=== PATIENT | male | born 1940 | race Caucasian/White ===

== ENCOUNTER 2017-08-17 13:13 | Emergency (ER) | payer OTHER ==
[~2017-08-17] VITALS: Ht 177.8 cm; Wt 81.7 kg
[~2017-08-17 13:13] MED LIST: ASPI81CH PO; Coreg12.5 MG PO; EPIN.3I IM; FLUSAL2505 INH; Fenofibrate134 MG PO; GABA300 PO; GUAI600T33 PO; LATA.005SO BOTHEYES; LEVFLO500 PO; Norco 10-325 T1 EACH PO; Norco 7.5-3251 EACH PO; Prednisone20 MG PO; TAMS.4ER PO; TIOT18 INH; TRAZ150T57 PO; Venlafaxine HCl75 MG PO; Zestril40 MG PO; Zithromax250 MG PO
[2017-08-17] MEDS ORDERED: Roxicodone5 MG PO (13:50)
== END 2017-08-17 14:00 | disposition home or self-care (01) ==
LOC: ER 13:13
DX: M75.31 Calcific tendinitis of right shoulder (principal); I10 Essential (primary) hypertension; J44.9 Chronic obstructive pulmonary disease, unspecified; F17.200 Nicotine dependence, unspecified, uncomplicated; Z88.5 Allergy status to narcotic agent; Z79.899 Other long term (current) drug therapy; Z79.82 Long term (current) use of aspirin; Z79.52 Long term (current) use of systemic steroids
CPT/HCPCS: 99283

== ENCOUNTER → 2018-04-11 | Outpatient (CLI) | payer OTHER ==
[~2018-04-11] MED LIST changes: +Roxicodone5 MG PO
[2018-04-11 11:42] LABS: BASOPHILS ABSOLUTE AUTO 0.05 K/mm3 (0.00-0.23); BASOPHILS PERCENT AUTO 1 % (0-2); EOSINOPHILS ABSOLUTE AUTO 0.05 K/mm3 (0.00-0.68); EOSINOPHILS PERCENT AUTO 1 % (0-6); Hematocrit 44.2 % (37.0-53.0); Hemoglobin 14.8 g/dL (13.5-17.5); IMMATURE GRAN ABSOLUTE AUTO 0.05 K/mm3 (0.00-0.10); IMMATURE GRAN PERCENT AUTO 1 % (0-1); LYMPHOCYTES ABSOLUTE AUTO 1.75 K/mm3 (0.84-5.20); LYMPHOCYTES PERCENT AUTO 16 % (21-46); MONOCYTES ABSOLUTE AUTO 1.15 K/mm3 (0.16-1.47); MONOCYTES PERCENT AUTO 11 % (4-13); Mean Corpuscular HGB 30.3 pg (26.0-34.0); Mean Corpuscular HGB Conc 33.5 g/dL (31.5-36.5); Mean Corpuscular Volume 91 fL (80-100); Mean Platelet Volume 9.4 fL (9.1-12.4); NEUTROPHILS ABSOLUTE AUTO 7.75 K/mm3 (1.96-9.15); NEUTROPHILS PERCENT AUTO 72 % (41-73); Platelet Count 256 K/mm3 (150-400); RDW Coefficient Variation 13.8 % (11.7-14.2); Red Blood Cell Count 4.88 M/mm3 (4.30-5.90)
[2018-04-11 11:54] LABS: Alanine Aminotransfer (ALT/SGP 15 U/L (12-78); Albumin, Blood 2.6 g/dL (3.4-5.0); Albumin/Globulin Ratio 0.6 (0.8-1.8); Alk Phos 83 U/L (40-126); Anion Gap 11 mmol/L (6-16); Aspartate Aminotrans (AST/SGOT 16 U/L (12-37); Bilirubin, Total 0.7 mg/dL (0.1-1.0); Blood Urea Nitrogen 9 mg/dL (8-24); Bun/Creatinine Ratio 12.3 (12.0-20.0); CO2, Blood 27 mmol/L (21-32); Calcium, Blood 9.1 mg/dL (8.5-10.1); Chloride, Blood 99 mmol/L (98-108); Creatinine, Blood 0.73 mg/dL (0.60-1.20); Globulin, Blood 4.3 g/dL (2.2-4.0); Glomerular Filtration Rate >60 (60-); Glucose, Blood 122 mg/dL (70-99); Potassium, Blood 3.6 mmol/L (3.5-5.5); Sodium, Blood 137 mmol/L (136-145); Total Protein, Blood 6.9 g/dL (6.4-8.2)
== END | disposition home or self-care (01) ==
LOC: LAB EV 11:38 → LAB SHORT 11:38
PROVIDERS: General Practice
DX: R06.02 Shortness of breath (principal)
CPT/HCPCS: 80053; 85025

== ENCOUNTER 2018-11-30 09:42 | Emergency (ER) | payer OTHER ==
[~2018-11-30] VITALS: Ht 182.9 cm; Wt 81.7 kg
[2018-11-30] MEDS ORDERED: OXYC10TA19 PO (11:46)
== END 2018-11-30 12:01 | disposition home or self-care (01) ==
LOC: ER 09:42
DX: M54.31 Sciatica, right side (principal); I10 Essential (primary) hypertension; J18.9 Pneumonia, unspecified organism; J44.9 Chronic obstructive pulmonary disease, unspecified; F17.200 Nicotine dependence, unspecified, uncomplicated; Z88.5 Allergy status to narcotic agent; Z79.899 Other long term (current) drug therapy; Z79.82 Long term (current) use of aspirin; Z79.52 Long term (current) use of systemic steroids
CPT/HCPCS: 73502; 96372; 99283-25; J1170

== ENCOUNTER 2019-01-25 08:39 | Day surgery (SDC) | payer OTHER ==
[~2019-01-25] VITALS: Ht 182.9 cm; Wt 80.4 kg
[~2019-01-25 08:39] MED LIST changes: +OXYC10TA19 PO
--- NOTE | 2019-01-25 11:18 | NUR ---
01/25/19 1118 Mercedes Lim PT WITH 2 DIME SIZE REDDENED AREAS AT THE RIGHT BICEP,LACERATION ON THE 5TH KNUCKLE,
--- NOTE | 2019-01-25 13:46 | NUR ---
01/25/19 1346 Renetta Garcia WHILE IN STEP DOWN PT DENIED NAUSEA AND PAIN. PT TOLERATED PO FLUIDS WELL. PT ACCOMPANIED BY HIS . RN WENT OVER DISCHARGE INSTRUCTIONS WITH PT AND PT'S UNTIL ALL QUESTIONS WERE ANSWERED. RN PROVIDED TEACHING RELATED TO INCENTIVE SPIROMETRY. PT DEMONSTRATED SPIROMETRY X4. PT DRESSED WITH HELP FROM AND RN. RN DEMONSTRATED HOW TO REMOVE AND ADJUST THE SLING. PT SENT HOME WITH: DISCHARGE INSTRUCTIONS, ULTRA SLING, POLAR UNIT, INCENTIVE SPIROMETRY, RX, AND PERSONAL BELONGINGS. PT AND PT'S VOICED SATISFACTION WITH CARE.
== END 2019-01-25 13:43 | disposition home or self-care (01) ==
LOC: ORSCSDS 08:39
PROVIDERS: Orthopaedic Surgery
PROC: 0LQ14ZZ Repair Right Shoulder Tendon, Percutaneous Endoscopic Approach (ICD-10-PCS; principal; 2019-01-25 10:00)
PROC: 0RBJ4ZZ Excision of Right Shoulder Joint, Percutaneous Endoscopic Approach (ICD-10-PCS; principal; 2019-01-25 10:00)
DX: M75.111 Incomplete rotator cuff tear or rupture of right shoulder, not specified as traumatic (principal); M75.31 Calcific tendinitis of right shoulder; J44.9 Chronic obstructive pulmonary disease, unspecified; F17.210 Nicotine dependence, cigarettes, uncomplicated; E78.5 Hyperlipidemia, unspecified; M79.7 Fibromyalgia; Z79.82 Long term (current) use of aspirin; Z79.899 Other long term (current) drug therapy
CPT/HCPCS: J0171; J0690; J1100; J1885; J2405; J2704; J2710; J3010; J7120

== ENCOUNTER → 2019-02-05 | Outpatient (CLI) | payer OTHER ==
[2019-02-05 10:43] LABS: BASOPHILS ABSOLUTE AUTO 0.06 K/mm3 (0.00-0.23); BASOPHILS PERCENT AUTO 1 % (0-2); EOSINOPHILS ABSOLUTE AUTO 0.19 K/mm3 (0.00-0.68); EOSINOPHILS PERCENT AUTO 2 % (0-6); Hematocrit 51.2 % (37.0-53.0); Hemoglobin 17.4 g/dL (13.5-17.5); IMMATURE GRAN ABSOLUTE AUTO 0.04 K/mm3 (0.00-0.10); IMMATURE GRAN PERCENT AUTO 1 % (0-1); LYMPHOCYTES ABSOLUTE AUTO 2.39 K/mm3 (0.84-5.20); LYMPHOCYTES PERCENT AUTO 29 % (21-46); MONOCYTES ABSOLUTE AUTO 0.65 K/mm3 (0.16-1.47); MONOCYTES PERCENT AUTO 8 % (4-13); Mean Corpuscular Volume 91 fL (80-100); NEUTROPHILS ABSOLUTE AUTO 5.01 K/mm3 (1.96-9.15); NEUTROPHILS PERCENT AUTO 60 % (41-73); Platelet Count 233 K/mm3 (150-400); RDW Coefficient Variation 14.2 % (11.7-14.2); RDW Standard Deviation 47.9 fL (35.1-46.3); Red Blood Cell Count 5.62 M/mm3 (4.30-5.90); White Blood Cell Count 8.34 K/mm3 (4.00-11.30)
[2019-02-05 10:55] LABS: Alanine Aminotransfer (ALT/SGP 18 U/L (12-78); Albumin, Blood 3.4 g/dL (3.4-5.0); Albumin/Globulin Ratio 0.9 (0.8-1.8); Alk Phos 84 U/L (40-126); Anion Gap 7 mmol/L (6-16); Aspartate Aminotrans (AST/SGOT 16 U/L (12-37); Bilirubin, Total 0.4 mg/dL (0.1-1.0); Blood Urea Nitrogen 14 mg/dL (8-24); Bun/Creatinine Ratio 20.6 (12.0-20.0); CO2, Blood 30 mmol/L (21-32); Calcium, Blood 9.1 mg/dL (8.5-10.1); Chloride, Blood 104 mmol/L (98-108); Creatinine, Blood 0.68 mg/dL (0.60-1.20); Globulin, Blood 3.8 g/dL (2.2-4.0); Glomerular Filtration Rate >60 (60-); Glucose, Blood 102 mg/dL (70-99); Potassium, Blood 3.9 mmol/L (3.5-5.5); Sodium, Blood 141 mmol/L (136-145); Total Protein, Blood 7.2 g/dL (6.4-8.2)
[2019-02-05 11:14] LABS: Troponin I <0.017 ng/mL (0.000-0.040)
== END | disposition home or self-care (01) ==
LOC: LAB EV 10:38 → LAB SHORT 10:38
PROVIDERS: Physician Assistant
DX: R07.9 Chest pain, unspecified (principal)
CPT/HCPCS: 80053; 83880; 84484; 85025; 85379

== ENCOUNTER → 2020-02-22 | Outpatient (CLI) | payer OTHER | LOC: PLD 13:38 → LAB SHORT 13:38 | DX: D48.5 Neoplasm of uncertain behavior of skin (principal) | CPT/HCPCS: 88312 ==

== ENCOUNTER 2021-09-24 15:31 | Inpatient (IN) | payer OTHER ==
[~2021-09-24] VITALS: Ht 182.9 cm; Wt 76.4 kg
[2021-09-24 17:01] LABS: BASOPHILS ABSOLUTE AUTO 0.06 K/mm3 (0.00-0.23); BASOPHILS PERCENT AUTO 1 % (0-2); EOSINOPHILS ABSOLUTE AUTO 0.02 K/mm3 (0.00-0.68); EOSINOPHILS PERCENT AUTO 0 % (0-6); Hematocrit 45.4 % (37.0-53.0); IMMATURE GRAN ABSOLUTE AUTO 0.07 K/mm3 (0.00-0.10); IMMATURE GRAN PERCENT AUTO 1 % (0-1); LYMPHOCYTES PERCENT AUTO 16 % (21-46); MONOCYTES ABSOLUTE AUTO 1.12 K/mm3 (0.16-1.47); MONOCYTES PERCENT AUTO 10 % (4-13); Mean Corpuscular HGB 29.2 pg (26.0-34.0); Mean Corpuscular Volume 89 fL (80-100); Mean Platelet Volume 9.7 fL (9.1-12.4); NEUTROPHILS ABSOLUTE AUTO 8.33 K/mm3 (1.96-9.15); NEUTROPHILS PERCENT AUTO 73 % (41-73); Platelet Count 273 K/mm3 (150-400); RDW Coefficient Variation 14.3 % (11.7-14.2); RDW Standard Deviation 46.6 fL (35.1-46.3); Red Blood Cell Count 5.13 M/mm3 (4.30-5.90)
[2021-09-24 17:18] LABS: Influenza A, PCR NEGATIVE (NEGATIVE); Influenza B, PCR NEGATIVE (NEGATIVE); Resp Syncytial Virus, PCR NEGATIVE (NEGATIVE)
[2021-09-24 17:20] LABS: Albumin, Blood 2.4 g/dL (3.4-5.0); Albumin/Globulin Ratio 0.5 (0.8-1.8); Bilirubin, Total 1.1 mg/dL (0.1-1.0); Calcium, Blood 9.1 mg/dL (8.5-10.1); Creatinine, Blood 0.58 mg/dL (0.60-1.20); Globulin, Blood 4.5 g/dL (2.2-4.0); Total Protein, Blood 6.9 g/dL (6.4-8.2)
[2021-09-24 18:05] LABS: SARS-Cov-2 (COVID-19) PCR, MMC POSITIVE (NEGATIVE)
[2021-09-24] MEDS ORDERED: OXYC10ER PO (23:01)
--- NOTE | 2021-09-25 03:17 | NUR ---
PT CONTINUES TO BE SWEATY BUT TEMPERATURE NORMAL WITH ORAL TEMPURATURE. DOES NOT FEEL WARM TO THE TOUCH. WARM BLANKETS PROVIDED FOR PT COMFORT. DENIES FURTHER NEEDS AT THIS TIME. CALL LIGHT IN REACH.
[2021-09-25 04:38] LABS: BASOPHILS ABSOLUTE AUTO 0.03 K/mm3 (0.00-0.23); BASOPHILS PERCENT AUTO 0 % (0-2); EOSINOPHILS PERCENT AUTO 0 % (0-6); Hematocrit 43.7 % (37.0-53.0); Hemoglobin 14.6 g/dL (13.5-17.5); IMMATURE GRAN ABSOLUTE AUTO 0.04 K/mm3 (0.00-0.10); IMMATURE GRAN PERCENT AUTO 1 % (0-1); LYMPHOCYTES ABSOLUTE AUTO 0.66 K/mm3 (0.84-5.20); LYMPHOCYTES PERCENT AUTO 9 % (21-46); MONOCYTES ABSOLUTE AUTO 0.15 K/mm3 (0.16-1.47); MONOCYTES PERCENT AUTO 2 % (4-13); Mean Corpuscular HGB 28.9 pg (26.0-34.0); Mean Corpuscular HGB Conc 33.4 g/dL (31.5-36.5); Mean Corpuscular Volume 86 fL (80-100); Mean Platelet Volume 10.6 fL (9.1-12.4); NEUTROPHILS ABSOLUTE AUTO 6.46 K/mm3 (1.96-9.15); NEUTROPHILS PERCENT AUTO 88 % (41-73); Platelet Count 245 K/mm3 (150-400); RDW Coefficient Variation 14.4 % (11.7-14.2); RDW Standard Deviation 45.7 fL (35.1-46.3); Red Blood Cell Count 5.06 M/mm3 (4.30-5.90); White Blood Cell Count 7.34 K/mm3 (4.00-11.30)
[2021-09-25 04:48] LABS: Albumin, Blood 2.2 g/dL (3.4-5.0); Albumin/Globulin Ratio 0.5 (0.8-1.8); Bilirubin, Total 0.7 mg/dL (0.1-1.0); Bun/Creatinine Ratio 32.2 (12.0-20.0); Calcium, Blood 8.4 mg/dL (8.5-10.1); Creatinine, Blood 0.47 mg/dL (0.60-1.20); Globulin, Blood 4.3 g/dL (2.2-4.0); Potassium, Blood 5.4 mmol/L (3.5-5.5); Total Protein, Blood 6.5 g/dL (6.4-8.2)
--- NOTE | 2021-09-25 06:48 | NUR ---
I&O CATHETER PLACED PER DR. HUIZAR'S INSTRUCTIONS DUE TO PT BEING UNABLE TO VOID. SUPRAPUBIC AREA TENDER WHEN PALPATED BUT DOES NOT HAVE SENSATION TO VOID. DRAINING SIGNIFICANT AMOUNT OF CLEAR, FREDRICK URINE. PT COMPLAINS OF SIGNIFICANT PAIN WITH CATHETER INSERTION. PAIN SUBSIDES AFTER REMOVAL. RESPIRATORY THERAPY CALLED TO REQUEST BREATHING TREATMENT.
[2021-09-25] MEDS ORDERED: CYCL10 PO (15:51)
[2021-09-25] MEDS ORDERED: BUSP5 PO (15:52)
--- NOTE | 2021-09-25 18:06 | NUR ---
PT SUMMARY: PT HAS BEEN ANXIOUS MOST OF THE SHIFT AND WAS RESTLESS IN BED, WAS FRUSTRATED HE IS SICK AND IS IN THE HOSPITAL, ASKED IF THE PT WAS IN PAIN PT STATED HE TAKES OXYCONTIN AND NORCO AT HOME, NORCO 2 TABS WAS GIVEN FOR 8/10 PAIN ALL OVER AND WAS EFFECTIVE, IN THE LATE AFTERNOON PT HAD ANXIETY ATTACK AGAIN C/O SOB/ AND WAS TACHYPNEIC EVEN THOUGH SATS WERE 94-96%, WHEN RT WAS IN THE ROOM REPORTED THAT HE TAKES BUSPAR FOR ANXIETY CALLED PROVIDER AND VERIFIED WITH [facility] BUSPAR 5MG WAS THEN ORDERED, ONE DOSE WAS GIVEN, PT MORE CALM AND RELAXED AT THIS TIME. VITALS HRR SR WITH PAC'S AND PVCS AT 90'S GOES UP TO 130'S ST WITH EXERTION, BP SYSTOLIC 110'S, HAS BEEN ON 3L OF O2 VIA NASAL CANNULA SATS HAS BEEN ABOVE 92%, AFERBRILE. NOC SHIFT RN REPORTED BLADDER RETENTION PT REPORTED HE VOIDED TWICE FOR THE SHIFT AND A BM WELL, BLADDER SCAN ONLY SHOWS 80MLS OF URINE RETAINED. BED BATH COMPLETED, PT WITH POOR APPETITE, MOSTLY TOLERATING FLUIDS. ECHO DONE, AWAITING FOR RESULRT. NO OTHER ISSUES REPORTED, ABLE TO MAKE NEEDS KNOWN, WILL REPORT TO ONCOMING SHIFT
--- NOTE | 2021-09-26 00:03 | NUR ---
Assumed care of patient at 1900. A/Ox4 with periods of high anxiety. Patient states "I just feel terrible". Patient sleeping on side when this RN entered. No acute distress noted. Bed alarm on, bed in low position, call light within reach.
[2021-09-26 05:24] LABS: BASOPHILS ABSOLUTE AUTO 0.02 K/mm3 (0.00-0.23); BASOPHILS PERCENT AUTO 0 % (0-2); EOSINOPHILS PERCENT AUTO 0 % (0-6); Hematocrit 41.6 % (37.0-53.0); Hemoglobin 13.6 g/dL (13.5-17.5); Mean Corpuscular HGB 28.9 pg (26.0-34.0); Mean Corpuscular HGB Conc 32.7 g/dL (31.5-36.5); Mean Corpuscular Volume 89 fL (80-100); Mean Platelet Volume 10.1 fL (9.1-12.4); Platelet Count 304 K/mm3 (150-400); RDW Coefficient Variation 14.4 % (11.7-14.2); RDW Standard Deviation 46.8 fL (35.1-46.3); White Blood Cell Count 9.39 K/mm3 (4.00-11.30)
[2021-09-26 05:25] LABS: IMMATURE GRAN ABSOLUTE AUTO 0.07 K/mm3 (0.00-0.10); IMMATURE GRAN PERCENT AUTO 1 % (0-1); LYMPHOCYTES ABSOLUTE AUTO 0.84 K/mm3 (0.84-5.20); LYMPHOCYTES PERCENT AUTO 9 % (21-46); MONOCYTES ABSOLUTE AUTO 0.53 K/mm3 (0.16-1.47); MONOCYTES PERCENT AUTO 6 % (4-13); NEUTROPHILS ABSOLUTE AUTO 7.93 K/mm3 (1.96-9.15); NEUTROPHILS PERCENT AUTO 85 % (41-73)
[2021-09-26 05:47] LABS: Albumin, Blood 2.1 g/dL (3.4-5.0); Anion Gap 7 mmol/L (6-16); Blood Urea Nitrogen 20 mg/dL (8-24); Bun/Creatinine Ratio 44.8 (12.0-20.0); CO2, Blood 29 mmol/L (21-32); Calcium, Blood 8.6 mg/dL (8.5-10.1); Chloride, Blood 102 mmol/L (98-108); Creatinine, Blood 0.45 mg/dL (0.60-1.20); Glomerular Filtration Rate 105 (60-); Glucose, Blood 140 mg/dL (70-99); Phosphorus, Blood 2.5 mg/dL (2.5-4.9); Potassium, Blood 3.8 mmol/L (3.5-5.5); Sodium, Blood 138 mmol/L (136-145)
[2021-09-26 05:48] LABS: BAND PERCENT MAN 3 % (0-8); BASOPHILS PERCENT MAN 0 % (0-2); EOSINOPHILS PERCENT MAN 0 % (0-6); LYMPHOCYTES ABSOLUTE MAN 0.65 K/mm3 (0.84-5.20); LYMPHOCYTES PERCENT MAN 7 % (21-46); MONOCYTES ABSOLUTE MAN 0.18 K/mm3 (0.16-1.47); MONOCYTES PERCENT MAN 2 % (4-13); NEUTROPHILS ABSOLUTE MAN 8.54 K/mm3 (1.96-9.15); SEG NEUTROPHILS PERCENT MAN 88 % (41-73); TOTAL CELLS COUNTED 100
--- NOTE | 2021-09-26 05:50 | NUR ---
SHIFT SUMMARY Patient remained A/Ox4, with periods of high anxiety. Patient reports pain "all over", repositioning and medicated per emar. 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 Weakness noted t/o. Patient states multiple times through shift that he is concerned about his 's ability to care for him given how weak he is. Maintaining over 92% on 3L NC, LS rhonchi on top bl, and dim at bases. TREVINO. Productive cough producing moderate, thick, gonzalez sputum. ST on tele 90-110. Peaked T waves noted on telemetry. VSS. Able to make needs known. Will report to dayshift RN.
--- NOTE | 2021-09-26 17:19 | NUR ---
PT SUMMARY: PT ANXIETY AND PAIN MANAGED WITH NORCO AND BUSPAR, PT WAS MORE CALM AND RELAXED TODAY STILL HAS EPISODES OF ANXIETY UPON GETTING UP TO USE THE BEDSIDE COMMODE, SATS HAS BEEN ABOVE 90% ON 3L. BP SYSTOLIC ELEVATED AT 150'S, HRR SR/ST 90'S. PT TRANSITIONED TO MEDICAL WITH NO TELE. NO ISSUES REPORTED FAR BOWEL ELIMINATION, HAD A BM TODAY ADEQUATE URINE OUTPUT, STILL HAS POOR APPETITE. BREATHING TX/INHALER PER RT. AND DAUGHTER WAS GIVEN UPDATE ABOUT PT OVER THE PHONE WAS ALSO ABLE TO TALK TO OVER THE PHONE, THEN LATE AFTERNOON PT TOLD THIS RN TO NOT DISCLOSED ANY INFORMATION TO ANYBODY OTHER THAN THE , CHART UPDATED. NO OTHER ISSUES REPORTED FOR THE SHIFT, WILL REPORT TO ONCOMING SHIFT
[2021-09-27 04:53] LABS: BASOPHILS ABSOLUTE AUTO 0.03 K/mm3 (0.00-0.23); BASOPHILS PERCENT AUTO 0 % (0-2); EOSINOPHILS PERCENT AUTO 0 % (0-6); Hematocrit 44.8 % (37.0-53.0); Hemoglobin 14.9 g/dL (13.5-17.5); Mean Corpuscular HGB Conc 33.3 g/dL (31.5-36.5); Mean Corpuscular Volume 87 fL (80-100); Platelet Count 330 K/mm3 (150-400); RDW Coefficient Variation 14.5 % (11.7-14.2); RDW Standard Deviation 46.5 fL (35.1-46.3); Red Blood Cell Count 5.13 M/mm3 (4.30-5.90); White Blood Cell Count 9.95 K/mm3 (4.00-11.30)
[2021-09-27 05:09] LABS: IMMATURE GRAN ABSOLUTE AUTO 0.05 K/mm3 (0.00-0.10); IMMATURE GRAN PERCENT AUTO 1 % (0-1); LYMPHOCYTES ABSOLUTE AUTO 1.67 K/mm3 (0.84-5.20); LYMPHOCYTES PERCENT AUTO 17 % (21-46); MONOCYTES ABSOLUTE AUTO 0.76 K/mm3 (0.16-1.47); MONOCYTES PERCENT AUTO 8 % (4-13); NEUTROPHILS ABSOLUTE AUTO 7.44 K/mm3 (1.96-9.15); NEUTROPHILS PERCENT AUTO 75 % (41-73)
[2021-09-27 05:20] LABS: Albumin, Blood 2.2 g/dL (3.4-5.0); Anion Gap 4 mmol/L (6-16); Blood Urea Nitrogen 14 mg/dL (8-24); Bun/Creatinine Ratio 27.7 (12.0-20.0); CO2, Blood 32 mmol/L (21-32); Calcium, Blood 8.7 mg/dL (8.5-10.1); Chloride, Blood 101 mmol/L (98-108); Creatinine, Blood 0.51 mg/dL (0.60-1.20); Glomerular Filtration Rate 101 (60-); Glucose, Blood 102 mg/dL (70-99); Phosphorus, Blood 2.5 mg/dL (2.5-4.9); Potassium, Blood 3.8 mmol/L (3.5-5.5); Sodium, Blood 137 mmol/L (136-145)
--- NOTE | 2021-09-27 05:55 | NUR ---
SHIFT SUMMARY Patient remained A/Ox4, with periods of high anxiety. New medication, Atarax, given with good relief. Patient reports pain "all over", repositioning and medicated per emar. Maintaining over 92% on 2L NC, LS rhonchi t/o. TREVINO. Productive cough producing large amounts of, thick, gonzalez sputum. VSS. Able to make needs known. No acute changes this shift. Will report to dayshift RN.
--- NOTE | 2021-09-27 19:31 | NUR ---
SHIFT SUMMARY PATIENT ALERT WHEN AWAKE. FREQUENTLY ANXIOUS THROUGHOUT SHIFT. SHORTNESS OF BREATH WITH EXERTION. 2L OF O2 VIA NC TO KEEP SATS ABOVE 90%. INS AND EXP WHEEZE THROUGHOUT. IND UP TO COMMODE THEN BACK TO BED. MEDICATED FOR PAIN PER EMAR. TOLERATING CARDIAC DIET AND LIQUIDS. TOLERATING BREATHING TREATMENTS PER RT.
--- NOTE | 2021-09-28 05:56 | NUR ---
SHIFT SUMMARY Patient remained A/Ox4, with less episodes of anxiety. Independent to BSC. Patient reports pain in his back, relieved with meds given per emar. Maintaining over 92% on 2L NC, LS rhonchi t/o. TREVINO. Productive cough producing large amounts of, thick, gonzalez sputum. VSS. Able to make needs known. No acute changes this shift. Will report to daysgem LANDEROS.
--- NOTE | 2021-09-28 08:48 | NUR ---
AM NOTE: ALERT AND ORIENTED X4. ABLE TO MOVE ALL EXTREMITIES AND MOVE SELF IN BED. UP TO BSC IND. SBA FOR WALKING. LEFT EYE BLINDNESS FROM HISTORY OF GLAUCOMA. DENIES NUMBNESS/TINGLING. ON 2L NASAL CANNULA SATING ABOVE 94%. DENIES SOB. PRODUCTIVE COUGH WITH ALCANTARA SPUTUM. LUNGS SOUNDING COARSE/DIMINISHED. NO TELE, MEDICAL STATUS. BP STABLE. DENIES CHEST PAIN/PRESSURE. HR 70'S. NO SIGNS OF EDEMA. STRONG PULSES. DENIES ABDOMINAL PAIN/NAUSEA. USING BSC. EATING WELL. DRINKING WATER. PATIENT STATES HE HAS BEEN HAVING INTERMIT ANXIETY BUT NONE THIS AM, DENIES NEEDS FOR ANXIETY MEDICATION. COMPLAINS OF CHRONIC PAIN TO NECK/BACK AND RIGHT HIP. PATIENT STATES SINCE HIS HOME PAIN MEDICATION HAS BEEN ORDERED HE IS FEELING MUCH BETTER AND LESS ANXIOUS. COMPLAINS OF PAIN THIS AM, BUT PAIN MEDICATION RECENTLY RECIEVED BY CONVEYOR BELT INSTALLER RN. CALL LIGHT IN REACH. DENIES NEEDS AT THIS TIME. WILL CONTINUE TO MONITOR.
--- NOTE | 2021-09-28 17:45 | NUR ---
SHIFT SUMMARY: NO ACUTE CHANGES. PATIENT REMAINS ALERT AND ORIENTED X4 NO CHANGES TO NEURO. REMAINS ON 2-3L NASAL CANNULA. PRODUCTIVE COUGH THROUGHOUT SHIFT. TELE CONTINUES TO SHOW SINUS RHYTHM WITH HR 70'S. BP STABLE. DENIES CHEST PAIN/PRESSURE. EATING SMALL AMOUNTS. USING BSC TO URINATE. ANTIBIOTICS INFUSED AND LAST DOSE OF REMDESIVIR GIVEN. VITAL SIGNS REMAINS STABLE THROUGHOUT SHIFT. COMPLAINS OF PAIN MANAGED WITH HOME DOSE PAIN MEDS, SEE EMAR. DENIES NEEDS AT THIS TIME. CALL LIGHT IN REACH. WILL CONTINUE TO MONITOR AND REPORT OFF.
--- NOTE | 2021-09-29 05:52 | NUR ---
SHIFT SUMMARY A/O X4- IND TO BEDSIDE COMMODE. NO ACUTE CHANGES THIS SHIFT, VITAL SIGNS STABLE. REMAINS ON 2-3L NC. VOIDING WELL. PAIN MANAGED W/ PO PAIN MEDICATION. PLAN FOR HOME 02 EVAL TODAY AND FOR PT TO DISCHARGE HOME. CALLED REPORT TO RECIEVING RN ON MEDICAL FLOOR, GATHER PT PERSONAL BELONGINGS AND TRANSFERED PT AT APPROX 0540 THIS AM.
--- NOTE | 2021-09-29 07:19 | NUR ---
SHIFT SUMMARY ASSUMED CARE, PCU TRANSFER THIS AM AROUND 0530. COVID +. AOX4. VSS. REPORTS 10/07 CHRONIC PAIN, STATES TOLERABLE AT THIS TIME. DENIES N/V. SPO2 95% ON 3L O2. E/U RESP. DENIES DYSPNEA @REST. PT POSSIBLE DC TODAY. CALL LIGHT IN REACH.
[2021-09-29] MEDS ORDERED: ALBU90OI INH (12:33)
[2021-09-29] MEDS ORDERED: ELIQUIS5 M2 PO (12:33)
[2021-09-29] MEDS ORDERED: AZIT250 PO (12:36)
[2021-09-29] MEDS ORDERED: SPIRIVA RESPIMAT4 G3 INH (12:37)
[2021-09-29] MEDS ORDERED: VISBIOME 112.51 EACH PO (12:38)
[2021-09-29] MEDS ORDERED: CEPH500 PO (12:38)
[2021-09-29] MEDS ORDERED: DILT180 PO (12:39)
[2021-09-29] MEDS ORDERED: FLUTICASONE-SA1 EAC1 INH (12:40)
--- NOTE | 2021-09-29 15:50 | NUR ---
DISCHARGE PATIENT TRANSPORTED VIA WHEELCHAIR TO PRIVATE VEHICLE. DISCHARGE INSTRUCTIONS EXPLAINED TO PATIENT AND . BOTH STATED UNDERSTANDING. PACKET SENT WITH PATIENT. BELONGINGS SENT WITH PATIENT. IV REMOVED WITHOUT DIFFICULTY. OXYGEN DELIVERED TO HOME. PORTABLE TANK SENT WITH PATIENT FOR RIDE HOME. MEDICATIONS FAXED TO [facility]. PATIENT TO SCHEDULE FOLLOW UP APPOINTMENT.
== END 2021-09-29 15:49 | disposition home health service (06) | DRG 177 ==
LOC: ER 15:31 → PCU 20:45 → MEDS 09-29 05:33
PROVIDERS: Family Medicine; Physician Assistant; ADMIT Internal Medicine
PROC: XW033E5 Introduction of Remdesivir Anti-infective into Peripheral Vein, Percutaneous Approach, New Technology Group 5 (ICD-10-PCS; principal; 2021-09-24)
PROC: 3E0DX3Z Introduction of Anti-inflammatory into Mouth and Pharynx, External Approach (ICD-10-PCS; 2021-09-24)
PROC: 8E0ZXY6 Isolation (ICD-10-PCS; 2021-09-24)
DX: U07.1 COVID-19 (principal); J12.82 Pneumonia due to coronavirus disease 2019; J96.01 Acute respiratory failure with hypoxia; I48.92 Unspecified atrial flutter; J44.1 Chronic obstructive pulmonary disease with (acute) exacerbation; E87.1 Hypo-osmolality and hyponatremia; J44.0 Chronic obstructive pulmonary disease with (acute) lower respiratory infection; F41.9 Anxiety disorder, unspecified; G89.29 Other chronic pain; I48.91 Unspecified atrial fibrillation; M79.2 Neuralgia and neuritis, unspecified; I10 Essential (primary) hypertension; F17.210 Nicotine dependence, cigarettes, uncomplicated; Z88.5 Allergy status to narcotic agent; Z98.890 Other specified postprocedural states; Z79.899 Other long term (current) drug therapy; Z79.82 Long term (current) use of aspirin; Z79.891 Long term (current) use of opiate analgesic; Z85.89 Personal history of malignant neoplasm of other organs and systems
CPT/HCPCS: 0241U; 36415; 71045; 80053; 80069; 84145; 84443; 84484; 85025; 93005; 93010; 93306; 94640; 94664; 94760; 94761; 94762; 96365; 96375; 96376; 99285-25; A9270; J0248; J0696; J2930; J3475; J7030; J7050

== ENCOUNTER 2021-10-12 13:10 | Inpatient (IN) | payer OTHER ==
[~2021-10-12] VITALS: Ht 185.4 cm; Wt 80.2 kg
[~2021-10-12 13:10] MED LIST changes: +ALBU90OI INH; +AZIT250 PO; +BUSP5 PO; +CEPH500 PO; +CYCL10 PO; +DILT180 PO; +ELIQUIS5 M2 PO; +FLUTICASONE-SA1 EAC1 INH; +OXYC10ER PO; +SPIRIVA RESPIMAT4 G3 INH; +VISBIOME 112.51 EACH PO
[2021-10-12 13:50] LABS: BASOPHILS ABSOLUTE AUTO 0.06 K/mm3 (0.00-0.23); BASOPHILS PERCENT AUTO 1 % (0-2); EOSINOPHILS ABSOLUTE AUTO 0.01 K/mm3 (0.00-0.68); EOSINOPHILS PERCENT AUTO 0 % (0-6); Hematocrit 49.5 % (37.0-53.0); IMMATURE GRAN ABSOLUTE AUTO 0.06 K/mm3 (0.00-0.10); IMMATURE GRAN PERCENT AUTO 1 % (0-1); LYMPHOCYTES ABSOLUTE AUTO 0.57 K/mm3 (0.84-5.20); LYMPHOCYTES PERCENT AUTO 4 % (21-46); MONOCYTES ABSOLUTE AUTO 0.59 K/mm3 (0.16-1.47); MONOCYTES PERCENT AUTO 5 % (4-13); Mean Corpuscular HGB 28.8 pg (26.0-34.0); Mean Corpuscular HGB Conc 32.3 g/dL (31.5-36.5); Mean Corpuscular Volume 89 fL (80-100); Mean Platelet Volume 9.5 fL (9.1-12.4); NEUTROPHILS PERCENT AUTO 90 % (41-73); Platelet Count 227 K/mm3 (150-400); RDW Coefficient Variation 14.3 % (11.7-14.2); RDW Standard Deviation 46.4 fL (35.1-46.3); Red Blood Cell Count 5.56 M/mm3 (4.30-5.90); White Blood Cell Count 13.19 K/mm3 (4.00-11.30)
[2021-10-12 14:12] LABS: Albumin, Blood 2.6 g/dL (3.4-5.0); Albumin/Globulin Ratio 0.7 (0.8-1.8); Bilirubin, Total 0.7 mg/dL (0.1-1.0); Bun/Creatinine Ratio 16.8 (12.0-20.0); Calcium, Blood 9.3 mg/dL (8.5-10.1); Creatinine, Blood 0.66 mg/dL (0.60-1.20); Globulin, Blood 3.9 g/dL (2.2-4.0); Potassium, Blood 4.1 mmol/L (3.5-5.5); Total Protein, Blood 6.5 g/dL (6.4-8.2)
[2021-10-12 14:19] LABS: Influenza A, PCR NEGATIVE (NEGATIVE); Influenza B, PCR NEGATIVE (NEGATIVE); Resp Syncytial Virus, PCR NEGATIVE (NEGATIVE); SARS-Cov-2 (COVID-19) PCR, MMC NEGATIVE (NEGATIVE)
[2021-10-13 03:46] LABS: BASOPHILS ABSOLUTE AUTO 0.04 K/mm3 (0.00-0.23); BASOPHILS PERCENT AUTO 0 % (0-2); EOSINOPHILS ABSOLUTE AUTO 0.03 K/mm3 (0.00-0.68); EOSINOPHILS PERCENT AUTO 0 % (0-6); Hematocrit 40.4 % (37.0-53.0); Hemoglobin 12.9 g/dL (13.5-17.5); IMMATURE GRAN ABSOLUTE AUTO 0.05 K/mm3 (0.00-0.10); IMMATURE GRAN PERCENT AUTO 0 % (0-1); LYMPHOCYTES ABSOLUTE AUTO 2.18 K/mm3 (0.84-5.20); LYMPHOCYTES PERCENT AUTO 18 % (21-46); MONOCYTES ABSOLUTE AUTO 0.84 K/mm3 (0.16-1.47); MONOCYTES PERCENT AUTO 7 % (4-13); Mean Corpuscular HGB 28.5 pg (26.0-34.0); Mean Corpuscular HGB Conc 31.9 g/dL (31.5-36.5); Mean Corpuscular Volume 89 fL (80-100); Mean Platelet Volume 9.1 fL (9.1-12.4); NEUTROPHILS ABSOLUTE AUTO 8.69 K/mm3 (1.96-9.15); NEUTROPHILS PERCENT AUTO 74 % (41-73); Platelet Count 153 K/mm3 (150-400); RDW Coefficient Variation 14.4 % (11.7-14.2); RDW Standard Deviation 47.6 fL (35.1-46.3); Red Blood Cell Count 4.52 M/mm3 (4.30-5.90); White Blood Cell Count 11.83 K/mm3 (4.00-11.30)
[2021-10-13 04:11] LABS: Bun/Creatinine Ratio 19.2 (12.0-20.0); Calcium, Blood 8.1 mg/dL (8.5-10.1); Creatinine, Blood 0.52 mg/dL (0.60-1.20); Potassium, Blood 3.9 mmol/L (3.5-5.5)
--- NOTE | 2021-10-13 06:04 | NUR ---
NOC SHIFT SUMMARY PT ORIENTED X4, VSS PER PT TREND ON 4L NC. R EYE PTOSIS NOTED ON ADMISSION TO PCU. PT STATES BASELINE. COMPLAINTS OF CHRONIC BACK PAIN. PRN AND SCHEDULED MEDS GIVEN WITH RELIEF. SEE EMAR FOR DETAILS. WILL CONTINUE TO MONITOR AND PASS ON TO DAY RN
--- NOTE | 2021-10-13 18:00 | NUR ---
SHIFT SUMMARY; ASSUMED CARE AT 0700, A/A/OX4. REPOSITIONS SELF ON GURNEY NEEDED, USES URINAL AT BEDSIDE. 4L O2 VIA NC WHICH IS PT'S BASELINE. SATS 92-94% DURING SHIFT, VSS. STATUS CHANGED TO MEDICAL DURING SHIFT, NO ACUTE MEDICAL CHANGES. WILL CONTINUE TO MONITOR AND TREAT UNTIL CHANGE OF SHIFT.
--- NOTE | 2021-10-14 06:20 | NUR ---
SHIFT SUMMARY A/OX4, SBA TO BATHROOM. TELE SR IN THE 70'S. DENIES CHEST PAIN/PRESSURE. CURRENTLY ON BASELINE O2 OF 4L VIA NC. COARSE LUNG SOUNDS T/O. OCC PRODUCTIVE COUGH WITH ALCANTARA SPUTUM NOTED, SENT TO LAB. CHRONIC BACK/NECK PAIN, MEDICATED PER EMAR. VSS, NO ACUTE CHANGES AT THIS TIME. BED IN LOWEST POSITION WITH CALL LIGHT IN REACH. WILL CONTINUE TO MONITOR AND REPORT TO ONCOMING RN.
--- NOTE | 2021-10-14 19:08 | NUR ---
END OF SHIFT SUMMARY: PATIENT REPORTED CHRONIC PAIN IN HIPS AND BACK TODAY. PAIN CONTROLLED WITH PRN PAIN MEDICATION, SCHEDULED PAIN MEDICATION AND REPOSITIONING. PATIENT UP TO THE CHAIR FOR LUNCH AND AMBULATED TO THE BATHROOM EVERY TIME HE NEEDED TO VOID. PATIENT DISPLAYED SOME SHORTNESS OF BREATH THAT RESOLVED WITH REST. PATIENT STABLE ON 4L VIA NC. PATIENT SP02 DOWN TO 90-91% WITH ACTIVITY. PATIENT AT 94-96% AT REST. PATIENT DENIED SHORTNESS OF BREATH OR DIFFICULTY BREATHING AT REST. PATIENT REPORTED IMPROVEMENT IN HIS BREATHING OVER THE LAST FEW DAYS. PATIENT HAS AN OCCASIONAL NON-PRODUCTIVE COUGH.
--- NOTE | 2021-10-15 06:23 | NUR ---
SHIFT SUMMARY: PATIENT DENIES CHEST PAIN, SOB, N/V. VSS ON 4L NC, WHICH IS PATIENT'S BASELINE POST-COVID. CHRONIC PAIN HAS BOTHERED HIM THIS SHIFT - MEDICATED PER EMAR. HAS AMBULATED WITH ASSISTANCE TO TOILET. BED LOW WITH CALL LIGHT IN REACH. WILL CONTINUE TO MONITOR AND REPORT TO ONCOMING RN.
--- NOTE | 2021-10-15 09:40 | NUR ---
Am note Pt alert, orineted x4, calm and cooperative with care. Pt resting in bed, up to bathroom ind, encouraged ambulation. Pt reports chronic back and hip pain, medicated with schedule and prn medciation as needed. Pt denies chest pain, nausea, dizziness and numb/tingling. Pt sob with activity, spo2 92-93% on 4l o2 via nc, ls coarse t/o. Pt tele sr 90's, bp elevated, will monitor. Abd soft nontender, normoactive bt t/o, pt has not had bm since 10/12, pt states sometimes that is "normal" for him and denies intervention at this time. Other vss. No other acute changes noted. Will continue to monitor.
[2021-10-15] MEDS ORDERED: HYDROCODONE-AC1 EA18 PO (11:31)
[2021-10-15] MEDS ORDERED: ELIQUIS5 M2 PO (11:33)
[2021-10-15] MEDS ORDERED: LACT PO (11:33)
[2021-10-15] MEDS ORDERED: ALBU90OI INH (11:44)
[2021-10-15] MEDS ORDERED: LEVOFLOXACIN750 MG PO (11:45)
[2021-10-15] MEDS ORDERED: AIRDUO DIGIHAL1 EAC2 INH (11:45)
[2021-10-15] MEDS ORDERED: PRED20 PO (11:50)
--- NOTE | 2021-10-15 14:32 | NUR ---
Discharge summary No acute changes noted t/o shift. Bp trending down. Other vss. Pt on 4l o2 via nc at baseline has equipment at home. Pt educated on discharge on discharge instructions, follow up appointment and medications. Pt left via wheelchair at approx 1321.
== END 2021-10-15 13:21 | disposition home or self-care (01) | DRG 871 ==
LOC: ER 13:10 → PCU 13:11
PROVIDERS: Emergency Medicine; ADMIT Family Medicine
DX: A41.89 Other specified sepsis (principal); G92.8 Other toxic encephalopathy; J96.21 Acute and chronic respiratory failure with hypoxia; J12.82 Pneumonia due to coronavirus disease 2019; J44.1 Chronic obstructive pulmonary disease with (acute) exacerbation; J44.0 Chronic obstructive pulmonary disease with (acute) lower respiratory infection; I48.0 Paroxysmal atrial fibrillation; F41.9 Anxiety disorder, unspecified; G89.29 Other chronic pain; Z98.890 Other specified postprocedural states; Z79.82 Long term (current) use of aspirin; Z79.899 Other long term (current) drug therapy; Z87.891 Personal history of nicotine dependence; I45.10 Unspecified right bundle-branch block; G62.9 Polyneuropathy, unspecified; Z20.822 Contact with and (suspected) exposure to COVID-19; Z86.16 Personal history of COVID-19
CPT/HCPCS: 0241U; 36415; 71046; 71260; 80048; 80053; 83605; 83880; 84145; 85025; 87040; 87070; 87077; 87186; 87205; 93005; 93010; 93971; 94640; 94664; 94760; 94762; 96365-59; 96375-59; 99285-25; A9270; G0378; J0456; J0696; J2930; J7030; J7050; J7120; Q9967

== ENCOUNTER 2021-10-26 19:06 | Inpatient (IN) | payer OTHER ==
[~2021-10-26] VITALS: Ht 182.9 cm; Wt 82.0 kg
[~2021-10-26 19:06] MED LIST changes: +AIRDUO DIGIHAL1 EAC2 INH; +HYDROCODONE-AC1 EA18 PO; +LACT PO; +LEVOFLOXACIN750 MG PO; +PRED20 PO
[2021-10-26 20:14] LABS: BASOPHILS ABSOLUTE AUTO 0.08 K/mm3 (0.00-0.23); BASOPHILS PERCENT AUTO 0 % (0-2); EOSINOPHILS ABSOLUTE AUTO 0.06 K/mm3 (0.00-0.68); EOSINOPHILS PERCENT AUTO 0 % (0-6); Hematocrit 43.1 % (37.0-53.0); Hemoglobin 14.2 g/dL (13.5-17.5); IMMATURE GRAN ABSOLUTE AUTO 0.12 K/mm3 (0.00-0.10); IMMATURE GRAN PERCENT AUTO 1 % (0-1); LYMPHOCYTES ABSOLUTE AUTO 2.88 K/mm3 (0.84-5.20); LYMPHOCYTES PERCENT AUTO 14 % (21-46); MONOCYTES ABSOLUTE AUTO 1.54 K/mm3 (0.16-1.47); MONOCYTES PERCENT AUTO 8 % (4-13); Mean Corpuscular HGB 28.7 pg (26.0-34.0); Mean Corpuscular HGB Conc 32.9 g/dL (31.5-36.5); Mean Corpuscular Volume 87 fL (80-100); Mean Platelet Volume 9.4 fL (9.1-12.4); NEUTROPHILS ABSOLUTE AUTO 15.64 K/mm3 (1.96-9.15); NEUTROPHILS PERCENT AUTO 77 % (41-73); Platelet Count 230 K/mm3 (150-400); RDW Coefficient Variation 14.9 % (11.7-14.2); RDW Standard Deviation 47.8 fL (35.1-46.3); Red Blood Cell Count 4.94 M/mm3 (4.30-5.90); White Blood Cell Count 20.32 K/mm3 (4.00-11.30)
[2021-10-26 20:26] LABS: Albumin, Blood 2.5 g/dL (3.4-5.0); Albumin/Globulin Ratio 0.8 (0.8-1.8); Bilirubin, Total 0.5 mg/dL (0.1-1.0); Bun/Creatinine Ratio 16.9 (12.0-20.0); Calcium, Blood 8.1 mg/dL (8.5-10.1); Creatinine, Blood 0.59 mg/dL (0.60-1.20); Globulin, Blood 3.3 g/dL (2.2-4.0); Potassium, Blood 4.1 mmol/L (3.5-5.5); Total Protein, Blood 5.8 g/dL (6.4-8.2)
[2021-10-26 21:54] LABS: Influenza A, PCR NEGATIVE (NEGATIVE); Influenza B, PCR NEGATIVE (NEGATIVE); Resp Syncytial Virus, PCR NEGATIVE (NEGATIVE); SARS-Cov-2 (COVID-19) PCR, MMC NEGATIVE (NEGATIVE)
--- NOTE | 2021-10-27 02:41 | NUR ---
TELEMETRY MONITORING CALLED TO NOTIFY THIS RN THAT OF ST ELEVATION READING ON MONITORS. MANAGER VAN TO ROOM AND EKG COMPLETED AND PLACED ON CHART. READING SR W/ FUSION COMPLEXES, RIGHT AXIS DEVIATION, AND INCOMPLETE R BBB AND POSSIBLE RIGHT VENTRICULAR HYPERTROPHY. RATE 98, DOWN FROM PREVIOUS EKG AT 115. PT DENIES ANY CP OR SOB. DR. YOUNG NOTIFIED. JUST STATED TO MONITOR. NO FURTHER ORDERS AT THIS TIME.
[2021-10-27 04:54] LABS: BASOPHILS ABSOLUTE AUTO 0.05 K/mm3 (0.00-0.23); BASOPHILS PERCENT AUTO 0 % (0-2); EOSINOPHILS ABSOLUTE AUTO 0.01 K/mm3 (0.00-0.68); EOSINOPHILS PERCENT AUTO 0 % (0-6); Hematocrit 39.4 % (37.0-53.0); Hemoglobin 12.8 g/dL (13.5-17.5); IMMATURE GRAN ABSOLUTE AUTO 0.11 K/mm3 (0.00-0.10); IMMATURE GRAN PERCENT AUTO 1 % (0-1); LYMPHOCYTES PERCENT AUTO 9 % (21-46); MONOCYTES ABSOLUTE AUTO 1.48 K/mm3 (0.16-1.47); MONOCYTES PERCENT AUTO 9 % (4-13); Mean Corpuscular HGB 28.4 pg (26.0-34.0); Mean Corpuscular HGB Conc 32.5 g/dL (31.5-36.5); Mean Corpuscular Volume 87 fL (80-100); Mean Platelet Volume 9.5 fL (9.1-12.4); NEUTROPHILS ABSOLUTE AUTO 14.16 K/mm3 (1.96-9.15); NEUTROPHILS PERCENT AUTO 82 % (41-73); Platelet Count 192 K/mm3 (150-400); RDW Coefficient Variation 14.9 % (11.7-14.2); RDW Standard Deviation 47.9 fL (35.1-46.3); Red Blood Cell Count 4.51 M/mm3 (4.30-5.90); White Blood Cell Count 17.31 K/mm3 (4.00-11.30)
--- NOTE | 2021-10-27 05:20 | NUR ---
SHIFT SUMMARY PT NEW ED ADMIT THIS EVENING. OVERALL PLEASANT AND COOPERATIVE BUT IRRITABLE ABOUT BEING MESSED WITH AFTER COMING UP FROM EMERGENCY DEPARTMENT. TELEMETRY PLACED AND READING SINUS RHYTHM TO SINUS TACH. NOTIFIED BY TELEMETRY OF ST ELEVATIONS. SEE PREVIOUS NOTE. PT COMPLAINING OF SEVERE CHRONIC BACK PAIN. HOME REGIMEN RESTARTED. PT ABLE TO SLEEP FOLLOWING FIRST DOSE. PT A/O X 4. A LITTLE BIT OF POOR HISTORIAN BUT OVERALL MENTALLY INTACT. PT WEAK AND TIRED. STATED HE WAS UNABLE TO GET OUT OF BED AT THIS TIME. SLID OVER FROM ED GURNEY. PT ON 4 L O2 VIA NC WHICH IS PATIENT'S HOME DOSE. FREQUENT PRODUCTIVE COUGH. SPUTUM THICK AND BROWN/YELLOW. DENIES SOB. VITAL SIGNS STABLE. WILL CONTINUE TO MONITOR.
[2021-10-27 05:49] LABS: Bun/Creatinine Ratio 18.4 (12.0-20.0); Calcium, Blood 8.2 mg/dL (8.5-10.1); Creatinine, Blood 0.54 mg/dL (0.60-1.20); Potassium, Blood 3.6 mmol/L (3.5-5.5)
--- NOTE | 2021-10-27 09:43 | NUR ---
MR OLIVER HAS 7/10 LOWER BACK AND HIP PAIN. REQUESTING PAIN MEDS. MESSAGE LEFT ON DR GUILLERMO.
--- NOTE | 2021-10-27 16:23 | NUR ---
PT VOIDED 200CC FREDRICK URINE. BLADDER SCAN POST VOID SHOWED 787CC. DR GUILLERMO NOTIFIED. SHE SAID IF PT CAN NOT VOID OK TO DO ONE TIME STRAIGHT CATH.
--- NOTE | 2021-10-27 18:30 | NUR ---
SHIFT SUMMARY MR OLIVER IS ALERT AND ORIENTATED X4. C/O CHRONIC LOWER BACK AND HIP PAIN THAT HE HAS BEEN MEDICATED FOR THIS SHIFT, WITH GOOD RESULTS. ON TELEMETRY, MOSTLY SR PER [employer]CH WITH AN EPISODE OF ST WHILE HE WAS UP ON THE BEDSIDE COMMODE HAVE BM AND URINATING. HE VOIDED 200CC, BLADDER SCAN SHOWED 787CC POST VOID. PT SAID HE COULD ONLY VOID SITTING ON THE TOILET/COMMODE BUT DID VOID A FURTHER ~500CC. REMINDED TO DRINK FLUIDS. HE DENIES ANY CHEST PAIN TODAY. HE STOOD AND TRANSFERED WELL WITH STAND BY ASSIST. NO SOB ON 4L O2 NC. SAT IN THE 90S ON CONTINUOUS PULSE OXIMETER. PRODUCTIVE MOIST COUGH. BED LOW, CALL LIGHT IN REACH.
--- NOTE | 2021-10-28 04:49 | NUR ---
DOWNTIME CHARTING THIS EVENING. SHIFT ASSESSMENT CHARTED ON PAPER AND PLACED IN CHART.
[2021-10-28 04:52] LABS: Hematocrit 36.1 % (37.0-53.0); Hemoglobin 11.9 g/dL (13.5-17.5); Mean Corpuscular HGB 29.2 pg (26.0-34.0); Mean Corpuscular Volume 89 fL (80-100); Mean Platelet Volume 9.1 fL (9.1-12.4); Platelet Count 158 K/mm3 (150-400); RDW Coefficient Variation 14.9 % (11.7-14.2); RDW Standard Deviation 48.9 fL (35.1-46.3); Red Blood Cell Count 4.08 M/mm3 (4.30-5.90)
--- NOTE | 2021-10-28 05:01 | NUR ---
SHIFT SUMMARY PT REPORTS FEELING WELL THIS EVENING. REMAINED ON BASELINE O2 OF 4 L VIA NC. CONT OX ON, O2 SATS IN THE LOW TO MID 90'S THROUGHOUT THE NIGHT. LUNG SOUNDS REMAIN COARSE THROUGHOUT. PT REPORTS COUGHING UP PHLEGM STILL. SLEPT BETTER THIS EVENING WITH HOME NIGHTTIME MEDICATIONS. PT HAS CHRONIC BACK AND HIP PAIN. MEDICATED W/ SCHEDULED CONTROLLED RELEASE OXYCONTIN AT BEDTIME. PT REQUIRED ONE ADDITIONAL DOSE OF PRN HYDROCODONE. NO ACUTE CHANGES THIS EVENING. VITAL SIGNS STABLE.
[2021-10-28 05:17] LABS: Albumin, Blood 2.1 g/dL (3.4-5.0); Anion Gap 7 mmol/L (6-16); Blood Urea Nitrogen 8 mg/dL (8-24); Bun/Creatinine Ratio 14.9 (12.0-20.0); CO2, Blood 29 mmol/L (21-32); Calcium, Blood 7.8 mg/dL (8.5-10.1); Chloride, Blood 104 mmol/L (98-108); Creatinine, Blood 0.54 mg/dL (0.60-1.20); Glomerular Filtration Rate 100 (60-); Glucose, Blood 88 mg/dL (70-99); Phosphorus, Blood 2.3 mg/dL (2.5-4.9); Potassium, Blood 3.7 mmol/L (3.5-5.5); Sodium, Blood 140 mmol/L (136-145)
--- NOTE | 2021-10-28 09:30 | NUR ---
MR OLIVER SAID HE TAKES GABAPENTIN 300MG IN THE MORNING AT HOME. HE ASKED WHY HE IS ON ASPRIN HE'S ON ELOQUIS. MS LEFT FOR DR GUILLERMO.
--- NOTE | 2021-10-28 13:26 | NUR ---
MR OLIVER SAT UP IN CHAIR THIS MORNING, TRANSFERED WELL WITH ONE PERSON STAND BY ASSIST. ON TELEMETRY - CALL FROM [employer] THIS AM THAT THERE WAS SOME ST ELEVATION. 12 LEAD ECG DONE AND ASSESSED BY DR GUILLERMO, NO CONCERNS. MR OLIVER HAS BEEN URINATING WELL THIS SHIFT, COLOR MORE YELLOW TODAY (FREDRICK YESTERDAY). HE DENIES CHEST PAIN, DOES HAVE CHRONIC BACK/HIP PAIN THAT HE TOOK MEDICATIONS FOR. BED LOW, CALL LIGHT IN REACH
--- NOTE | 2021-10-28 17:09 | NUR ---
SHIFT SUMMARY MR OLIVER CONVERTED FROM SR/ST TO AFIB, CALL FROM [employer] SAID HE DROPPED TO HR 36 VERY BRIEFLY, POPPED RIGHT BACK TO 90S IN AFIB. PT ASYMPTOMATIC, VITAL SIGNS CHECKED AND STABLE. DR GUILLERMO NOTIFIED. HE REMAINS ON 4L NC O2, WHICH HE WAS ON AT HOME. ON CONTINUOUS PULSE OX IN THE 90S. SAT OUT IN CHAIR TODAY AND AGREED TO GET UP FOR SUPPER. VOIDING BETTER TODAY. PAIN CONTROLLED WITH MEDICATIONS. HE REQUESTED MED FOR ANXIETY TODAY TOO, WHICH HE SAID HE TAKES AT HOME ABOUT ONCE A DAY, SAID IT WAS HELPFUL. BED LOW, CALL LIGHT IN REACH.
--- NOTE | 2021-10-29 04:48 | NUR ---
SHIFT SUMMARY PT HAD AN UNEVENTFUL NIGHT. SLEPT MUCH OF THE EVENING. MEDICATED WITH SCHEDULED BEDTIME MEDICATION FOR PAIN. PT HAS NOT REQUIRED FURTHER PRN MEDICATION FOR PAIN SO FAR TONIGHT. PT DENIES SOB. REPORTS LESS SPUTUM PRODUCTION AND OVERALL FEELING "PRETTY GOOD". PT REMAINS ON 4 L VIA NC WHICH IS HIS BASELINE. VITAL SIGNS STABLE. NO ACUTE CHANGES THIS EVENING.
[2021-10-29 04:53] LABS: Hematocrit 36.2 % (37.0-53.0); Hemoglobin 11.6 g/dL (13.5-17.5); Mean Corpuscular HGB 28.7 pg (26.0-34.0); Mean Corpuscular Volume 90 fL (80-100); Mean Platelet Volume 9.6 fL (9.1-12.4); Platelet Count 171 K/mm3 (150-400); Red Blood Cell Count 4.04 M/mm3 (4.30-5.90); White Blood Cell Count 6.21 K/mm3 (4.00-11.30)
[2021-10-29 05:14] LABS: Albumin, Blood 2.1 g/dL (3.4-5.0); Anion Gap 5 mmol/L (6-16); Blood Urea Nitrogen 7 mg/dL (8-24); Bun/Creatinine Ratio 13.6 (12.0-20.0); CO2, Blood 29 mmol/L (21-32); Calcium, Blood 8.4 mg/dL (8.5-10.1); Chloride, Blood 104 mmol/L (98-108); Creatinine, Blood 0.51 mg/dL (0.60-1.20); Glomerular Filtration Rate 101 (60-); Glucose, Blood 95 mg/dL (70-99); Phosphorus, Blood 3.1 mg/dL (2.5-4.9); Potassium, Blood 3.7 mmol/L (3.5-5.5); Sodium, Blood 138 mmol/L (136-145)
--- NOTE | 2021-10-29 17:49 | NUR ---
PATIENT IS ALERT AND ORIENTED AND COOPERATIVE WITH CARE. PATIENT WAS CHANGED TO A MECHANICAL SOFT DIET THIS MORNING AND HAS TOLERATED IT WELL TODAY. PLAN IS FOR ST TO REASSESS HIM TOMORROW MORNING. PATIENT C/O PAIN, MEDICATED PER EMAR. WILL CONTINUE TO MONITOR
--- NOTE | 2021-10-30 04:50 | NUR ---
SHIFT SUMMARY PT HAD A GOOD NIGHT. AWAKE INTERMITTENTLY BUT APPEARED TO MOSTLY SLEEP WELL. PT ON 3.5 L VIA NC WITH O2 SATS IN THE LOW 90'S. PT REPORTS TO WEARING 4 L AT BASELINE. CONT OX MONITORING IN PLACE. PT HAS DENIED SOB AND REPORTS THAT COUGH HAS IMPROVED. PT HAS CHRONIC BACK AND HIP PAIN, MEDICATED PER EMAR. PT ALSO REPORTING ANXIETY THIS AM, REQUESTING ONE DOSE OF BUSPAR. TELEMETRY MONITORING NOTED THAT PT HAD A COUPLE EPISODES WHERE HE CONVERTED INTO AFIB FOR SEVERAL MINUTES AND THEN CONVERTED BACK TO SINUS RHYTHM. ASYMPTOMATIC. OTHERWISE NO ACUTE CHANGES THIS SHIFT. VITAL SIGNS REMAINED STABLE.
--- NOTE | 2021-10-30 16:00 | NUR ---
SHIFT SUMMARY PATIENT IS ALERT AND ORIENTED X4. PATIENT HAS BEEN PLEASENT AND COOPERATIVE WITH CARE. PATIENT IS A STANDBY ASSIST TO BSC. PATIENT IS STILL ON 4L NC WHICH IS BASELINE. PATIENT HAS HAD NO COMPLAINTS OF PAIN, NAUSEA, VOMITTING OR SOB THIS SHIFT. PATIENT WAS MEDICATED PER EMAR FOR ANXIETY ONCE THIS SHIFT. BED IN LOCKED AND LOWEST POSITION. CALL LIGHT IN PLACE. WILL MONITOR UNTIL SHIFT CHANGE.
--- NOTE | 2021-10-31 01:06 | NUR ---
DUST COLLECTOR OPERATOR FRANKY REPORTS PATIENT READING SINUS RHYTHM 78 WITH LESS ARTIFACTS SLEEPING. STARTED SHIFT AT SINUS RHYTHM AVERAGE 104.
--- NOTE | 2021-10-31 04:17 | NUR ---
SHIFT SUMMARY PATIENT HAD NO ACUTE CHANGES. AXOX 4 AND SBA TO BSC. USES URINAL AT BEDSIDE. REPORTED BACK PAIN X ONE AND SCHEDULE OXYCONTIN 20 MG GIVEN PER EMAR. ON 4L O2 N/C. DENIES CHEST PAIN, SOB, AND N/V. VSS/AFEBRILE, BAG LINER REPORTS SINUS RHYTHM AVERAGE 104 WITH ARTIFACT AND HARD TO READ START OF SHIFT. BAG LINER LATER REPORTS SINUS RHYTHM 78 WHEN SLEEPING. CALL LIGHT IN REACH. BED IN LOWEST POSITION. WILL CONTINUE TO MONITOR UNTIL DAY SHIFT NURSE ASSUMES CARE.
[2021-10-31] MEDS ORDERED: AMOCLA875 PO (14:58)
--- NOTE | 2021-10-31 18:31 | NUR ---
DISCHARGE SUMMARY PATIENT IS ALERT AND ORIENTED. PATIENT IS BEING DISCHARGED TO HOME. PATIENT IS BEING TRANSPORTED HOME BY . PATIENT HAS HAD NO ACUTE EVENTS THIS SHIFT.
== END 2021-10-31 18:21 | disposition home or self-care (01) | DRG 871 ==
LOC: ER 19:06 → MEDS 19:07
PROVIDERS: Family Medicine; Internal Medicine; Student in an Organized Health Care Education/Training Program; ADMIT Family Medicine
DX: A41.9 Sepsis, unspecified organism (principal); J18.9 Pneumonia, unspecified organism; J69.0 Pneumonitis due to inhalation of food and vomit; J96.21 Acute and chronic respiratory failure with hypoxia; Z20.822 Contact with and (suspected) exposure to COVID-19; G89.4 Chronic pain syndrome; J43.9 Emphysema, unspecified; F41.9 Anxiety disorder, unspecified; M51.16 Intervertebral disc disorders with radiculopathy, lumbar region; H40.9 Unspecified glaucoma; R65.20 Severe sepsis without septic shock; I10 Essential (primary) hypertension; I48.0 Paroxysmal atrial fibrillation; Z88.6 Allergy status to analgesic agent; Z79.2 Long term (current) use of antibiotics; Z79.01 Long term (current) use of anticoagulants; Z79.52 Long term (current) use of systemic steroids; Z79.82 Long term (current) use of aspirin; Z79.51 Long term (current) use of inhaled steroids; Z98.890 Other specified postprocedural states; Z87.891 Personal history of nicotine dependence; Z79.899 Other long term (current) drug therapy
CPT/HCPCS: 0241U; 36415; 71260; 80048; 80053; 80069; 83605; 83880; 84145; 84484; 85025; 85027; 87040; 92526; 92610; 93005; 93010; 94640; 94644; 94664; 94760; 94762; 96361; 96365-59; 96366-59; 96375; 97162; 97530; 99285-25; A9270; G0378; J0456; J0696; J7040; J7050; J7060; J7120; Q9967

== ENCOUNTER 2022-02-19 07:42 | Inpatient (IN) | payer OTHER ==
[~2022-02-19] VITALS: Ht 180.3 cm; Wt 76.1 kg
[~2022-02-19 07:42] MED LIST changes: +AMOCLA875 PO
[2022-02-19 08:11] LABS: BASOPHILS ABSOLUTE AUTO 0.04 K/mm3 (0.00-0.23); BASOPHILS PERCENT AUTO 0 % (0-2); EOSINOPHILS ABSOLUTE AUTO 0.22 K/mm3 (0.00-0.68); EOSINOPHILS PERCENT AUTO 2 % (0-6); Hematocrit 50.8 % (37.0-53.0); Hemoglobin 16.2 g/dL (13.5-17.5); IMMATURE GRAN ABSOLUTE AUTO 0.03 K/mm3 (0.00-0.10); IMMATURE GRAN PERCENT AUTO 0 % (0-1); LYMPHOCYTES ABSOLUTE AUTO 0.73 K/mm3 (0.84-5.20); LYMPHOCYTES PERCENT AUTO 8 % (21-46); MONOCYTES ABSOLUTE AUTO 0.57 K/mm3 (0.16-1.47); MONOCYTES PERCENT AUTO 6 % (4-13); Mean Corpuscular HGB 28.8 pg (26.0-34.0); Mean Corpuscular HGB Conc 31.9 g/dL (31.5-36.5); Mean Corpuscular Volume 90 fL (80-100); Mean Platelet Volume 9.2 fL (9.1-12.4); NEUTROPHILS ABSOLUTE AUTO 7.51 K/mm3 (1.96-9.15); NEUTROPHILS PERCENT AUTO 83 % (41-73); Platelet Count 215 K/mm3 (150-400); RDW Coefficient Variation 13.2 % (11.7-14.2); RDW Standard Deviation 44.4 fL (35.1-46.3); Red Blood Cell Count 5.63 M/mm3 (4.30-5.90)
[2022-02-19 08:12] LABS: Base Excess Venous 3.7 mmol/L; Bicarbonate Venous 26.7 mmol/L (24.0-30.0); PCO2 Venous 49.2 mmHg (38-42); pH Blood Venous 7.38 (7.34-7.37)
[2022-02-19] MEDS ORDERED: GABAPENTIN600 MG PO (08:29)
[2022-02-19] MEDS ORDERED: TRELEGY ELLIPT1 EACH IH (08:30)
[2022-02-19 08:32] LABS: Albumin, Blood 2.9 g/dL (3.4-5.0); Albumin/Globulin Ratio 0.7 (0.8-1.8); Bilirubin, Total 0.5 mg/dL (0.1-1.0); Bun/Creatinine Ratio 24.1 (12.0-20.0); Calcium, Blood 8.9 mg/dL (8.5-10.1); Creatinine, Blood 0.66 mg/dL (0.60-1.20); Potassium, Blood 4.1 mmol/L (3.5-5.5); Total Protein, Blood 6.9 g/dL (6.4-8.2)
[2022-02-19] MEDS ORDERED: HYDROCODONE-AC1 EAC7 PO (08:32)
[2022-02-19 09:01] LABS: Influenza A, PCR NEGATIVE (NEGATIVE); Influenza B, PCR NEGATIVE (NEGATIVE); SARS-Cov-2 (COVID-19) PCR, MMC NEGATIVE (NEGATIVE)
[2022-02-19 09:05] LABS: Resp Syncytial Virus, PCR POSITIVE (NEGATIVE)
--- NOTE | 2022-02-19 11:30 | NUR ---
NURSING PCU DAYSHIFT: Assumed care of pt at approx 1100. Arrived from ER via gurney accompanied by RN and RT. Xfer w/SBA to unit bed. Very pleasant, cooperative w/care, able to follow commands w/o difficulty. Mild weakness noted though able to xfer w/line management only. Skin is fragile/dry w/no breakdown noted. C/O 4/10 chronic back pain, tx w/meds as ordered and repositioning. Tele in place, SR/ST w/BBB, no c/o CP/pressure, SBP 134, trace BLE edema. L/S w/rhonchi t/o and wheezes to b/l bases, 3L NC upon arrival w/O2 sat low 90's, respirations rapid and shallow, dyspnea w/minimal exertion, harsh/moist cough producing moderate amts of thick/yellow sputum. Abd SNT, BT+, voiding w/o difficulty per pt. PIV x1, NS infusing at 200mls/hr x1 liter as per d/o. Pt appeared in respiratory distress upon xfer to bed, tripoding and difficulty talking. Placed on bipap w/settings of 14/7, BACKUP 12, FIO2 35% which pt is tolerating well, O2 sat mid 90's at this time, continuous O2 monitoring in place. Pt denies any current needs or questions regarding plan of care. Placed in droplet isolation for +RSV. Call light in reach, demonstrated ability to use w/o difficulty. Cont to monitor for any changes.
[2022-02-19 17:57] LABS: Source, Urine Foley catheter
[2022-02-19 18:02] LABS: Appearance, Urine Clear (Clear); Bilirubin, Urine Neg (Neg); Blood, Urine 3+ (Neg); Color, Urine Amber (P-Yellow); Glucose Qualitative, Urine Neg (Neg); Ketones, Urine 1+ (Neg); Leukocyte Esterase, Urine Neg (Neg); Nitrite, Urine Neg (Neg); Protein, Urine 4+ (Neg); Specific Gravity, Urine 1.025 (1.003-1.022); Urobilinogen, Urine NORM (Normal)
--- NOTE | 2022-02-19 18:10 | NUR ---
NURSING PCU ICU TRANSFER: Pt continued to have increased work of breathing t/o shift w/bipap in place, O2 sat remained stable w/settings of 14/7 and FiO2 35%. At approx 1730 pt began stating "I can't breathe" at which time solumedrol and PRN albuterol neb administered, FC placed. Call placed to PMD by CN w/request to see pt at bedside. Shortly after, pt became diaphoretic, rhythm changed to afib w/RVR HR 160-170's, increased tachypnea. New d/o received to xfer pt to ICU w/intesivist consult, xfer via bed completed at approx 1800 accompanied by RNx2 and RT, bedside report given to ELECTRICAL EXPERIMENTAL MECHANIC.
[2022-02-19 18:14] LABS: White Blood Cells, Urine 0-2 /hpf (0-5)
[2022-02-19 18:16] LABS: Bacteria Few /hpf; Hyaline Casts 0-2 /lpf (0-2); Renal Epithelial Few /hpf (0-Rare); Squamous Epithelial Cells Not Seen /hpf (Few)
--- NOTE | 2022-02-19 18:21 | NUR ---
ARRIVAL TO ICU PT TRANSFERRED FROM PCU AT 1800 FOR INCREASED WOB. PT ON BIPAP 11/10/35%, TV 700-800ML. LUNGS COARSE THROUGHOUT. PRODUCTIVE COUGH. RR 30-40'S. LABORED, TRIPODING. SPEAKS IN ONE WORD RESPONSES. AFIB c RVR ON MONITOR, RATE 150-160'S. AWAITING CARDIZEM GTT. HTN NOTED. SUNG PATENT, DRAINING CLEAR YELLOW URINE TO GRAVITY. DR AUGUSTINE CONSULTED. WILL CONTINUE TO MONITOR UNTIL REPORT TO ONCOMING NURSE.
--- NOTE | 2022-02-19 19:30 | NUR ---
ASSUMED CARE OF PT AT 1900 PT IN ROOM WITH PT AT THIS TIME. PT SLEEPING IN ROOM WITH BIPAP ON 11/10 35%. SITTING AT 90 DEGREES. CARDIZEM AT 10 MCG/HR. BP 120'S/60'S. HR 90'S-100'S. AFIB RVR AT THIS TIME. SEE ASSESSMENT FOR FURTHER INFORMATION.
--- NOTE | 2022-02-19 22:33 | NUR ---
PT GIVEN ATIVAN FOR ANXIETY D/T BIPAP AND CURRENT TREATMENT. PT CONTINUED TO TRIPOD IN BED WITH SEVERE ANXIETY. STATES "I CAN NOT BREATH". DR AUGUSTINE NOTIFIED, RESPIRATORY THERAPY IN ROOM AT THIS TIME.
--- NOTE | 2022-02-20 00:51 | NUR ---
PT ANXIOUS WITH HR IN 110'S. SITTING FORWARD AND MOANING. PRN ATIVAN GIVEN WITH RELIEF. HR NOW AT UPPER 90'S. WILL CONTINUE TO MONITOR.
[2022-02-20 03:31] LABS: BASOPHILS ABSOLUTE AUTO 0.02 K/mm3 (0.00-0.23); BASOPHILS PERCENT AUTO 0 % (0-2); EOSINOPHILS PERCENT AUTO 0 % (0-6); Hematocrit 46.4 % (37.0-53.0); Hemoglobin 15.2 g/dL (13.5-17.5); IMMATURE GRAN ABSOLUTE AUTO 0.03 K/mm3 (0.00-0.10); IMMATURE GRAN PERCENT AUTO 0 % (0-1); LYMPHOCYTES ABSOLUTE AUTO 0.49 K/mm3 (0.84-5.20); LYMPHOCYTES PERCENT AUTO 6 % (21-46); MONOCYTES ABSOLUTE AUTO 0.31 K/mm3 (0.16-1.47); MONOCYTES PERCENT AUTO 4 % (4-13); Mean Corpuscular HGB 29.1 pg (26.0-34.0); Mean Corpuscular HGB Conc 32.8 g/dL (31.5-36.5); Mean Corpuscular Volume 89 fL (80-100); Mean Platelet Volume 9.4 fL (9.1-12.4); NEUTROPHILS ABSOLUTE AUTO 7.83 K/mm3 (1.96-9.15); NEUTROPHILS PERCENT AUTO 90 % (41-73); Platelet Count 202 K/mm3 (150-400); RDW Coefficient Variation 13.2 % (11.7-14.2); RDW Standard Deviation 43.4 fL (35.1-46.3); Red Blood Cell Count 5.22 M/mm3 (4.30-5.90); White Blood Cell Count 8.68 K/mm3 (4.00-11.30)
[2022-02-20 03:59] LABS: Bun/Creatinine Ratio 31.7 (12.0-20.0); Calcium, Blood 8.6 mg/dL (8.5-10.1); Creatinine, Blood 0.63 mg/dL (0.60-1.20)
[2022-02-20 05:18] LABS: PCO2 Arterial 51.6 mmHg (35-45); PO2 Arterial 84.1 mmHg (80-100); pH Blood Arterial 7.39 (7.35-7.45)
--- NOTE | 2022-02-20 05:30 | NUR ---
END OF SHIFT SUMMARY PT A/O X4. PT SPOUSE IN ROOM. BIPAP WORN ENTIRE SHIFT WITH INTERMITENT ANXIETY EPISODES X2 HR UP TO 110'S WITH PT TRIPODING. SPO2 STAYED ABOVE 90% AT THESE TIMES. PRN MEDICATIONS RESOLVED ANXIETY. SUNG DRAINING TO GRAVITY, LASIX GIVEN WITH 900 MLS URINE OUT THIS SHIFT. BP STABLE 120'S/80'S. BIPAP 14/7 35%. WILL CONTINUE TO MONITOR UNTIL REPORT GIVEN TO AM NURSE.
--- NOTE | 2022-02-20 08:00 | NUR ---
PT AWAKENS TO VOICE AND IS A&OX4. PT REPORTS GENERALIZED PAIN. PT GIVEN APROXIMATELY 15 MINUTE BREAK FROM BIPAP FOR ORAL CARE AND AM CARE. PT TOLERATED WELL ON 6 LITERS NASAL CANULA. AFTER 15 MINUTES, PT BECAME ANXIOUS, TACHYPNEIC, AND DYSPNEIC. PT GIVEN PO MEDS WITHOUT DIFFICULTY INCLUDING SCHEDULED OXYCODONE FOR PAIN-SEE EMAR. ONCE MEDS GIVEN, PT PLACED ON BIPAP-SATS>90% ON FIO2 35%. IN ADDITION, PT MED WITH ATIVAN 0.5 MG IVP X1 FOR ANXIETY. PT NPO EXCEPT FOR SIPS OF WATER WITH MEDS. ASPIRATION PRECAUTIONS. SUNG TO BSD WITH ADEQUATE AMOUNT OF CLEAR, YELLOW URINE OUTPUT. SKIN IS PALE AND FRAIL, BUT NO NOTED SKIN BREAKDOWN. PT ORTHOPNEIC-BOOSTED IN BED/HIGH PAULA'S POSITION. HEELS FLOATED.
--- NOTE | 2022-02-20 10:00 | NUR ---
PT RESTING QUIETLY ON BIPAP-SATS 93%. DR. AUGUSTINE IN TO SEE PT-UPDATE GIVEN.
--- NOTE | 2022-02-20 10:00 | NUR ---
PT RESTING QUIETLY ON BIPAP WHEN NOT DISTURBED. TURNED TO RIGHT SIDE-CALL LIGHT WITHIN REACH.
--- NOTE | 2022-02-20 12:00 | NUR ---
PT HAS BEEN SLEEPING WHEN NOT DISTURBED. PT AWAKENS TO VOICE AND IS A&OX4. PT REPORTS 8/10 LOWER BACK PAIN- MED WITH NORCO-SEE EMAR. PT GIVEN BREAK FROM BIPAP-ORAL CARE DONE AND PO MEDS GIVEN TOLERATED WELL. LUNGS CONTINUE WITH RHONCHI T/O AND DIMINISHED IN THE BASES. COUGH REMAINS MOIST AND NONPRODUCTIVE. PT MAINTAINED SATS>90% ON 6 LITERS DURING THE BREAK AND APPEARED LESS DYSPNEIC. PT REPOSITIONED TO COMFORT ON LEFT SIDE. CALL LIGHT WITHIN REACH.
--- NOTE | 2022-02-20 15:30 | NUR ---
PT HAS BEEN SLEEPING THROUGH OUT THIS AFTERNOON. PT AWAKENS TO VOICE AND IS A&OX4. PT GIVEN VERY BRIEF BREAK FROM BIPAP. ORAL CARE DONE. PT REPORTED 8/10 LOW BACK PAIN AND REQUESTED "PAIN MED." PT BECAME ANXIOUS AND TACHYPNEIC WHEN RN EXPLAINED THAT IT WAS TOO EARLY FOR PAIN MEDS. PT NOSE WITH 2MM BLACK SPOT FROM BIPAP MASK DESPITE THE GEL PAD. FULL FACE MASK PLACED. PT RR 40'S. LUNGS WITH COARSE RHONCHI AND WHEEZES THROUGH OUT. SATS DROPPED TO 80'S DURING APROX. 3 MINUTE BREAK, BUT QUICKLY RECOVERED ONCE BIPAP MASK REPLACED. PT MED WITH ATIVAN 0.5 MG IVP FOR ANXIETY AND REPOSITONED TO COMFORT ON RIGHT SIDE. DR. AUGUSTINE UPDATED TO CURRENT STATUS AND CURRENT OUTPUT-PLAN FOR DIETARY CONSULT, CHANGE PO ANTIBIOTICS TO IV, AND CLINIMIX. CALL LIGHT WITHIN REACH.
--- NOTE | 2022-02-20 22:26 | NUR ---
ASSUMED CARE AT 1900 PATIENT SLEEPING AT START OF SHIFT, DURING ASSESSMENT PATIENT ALERT AND ORIENTED X4. 02 SATS 96% ON BIPAP 03/06 FI02 40%, RR 20-30s, LS COARSE WITH SLIGHT WHEEZES. HR ST 100-110, BP STABLE. SUNG PATENT AND DRAINING TO GRAVITY. VERBAL TO MINIMAL ASSISTANCE WITH REPOSITIONING. CLINIMIX INF. PATIENT TOOK BREAK FROM BIPAP FOR PM MEDICATIONS AND ORAL CARE, 02 SATS REMAINED >93%, PATIENT HAD COARSE NON PRODUCTIVE COUGH. BIPAP PLACED BACK ON, SOON AFTER PATIENT BECAME VERY ANXIOUS, PRN ATIVAN GIVEN. NO IMPROVEMENT AND PATIENT NOW IN A.FIB UP TO 170s AT TIMES, BP REMIANED STABLE AND PATIENT A&O. CALLED DR. AUGUSTINE, PRECEDEX STARTED WELL CARDIZEM SOON AFTER DUE TO NO IMPROVEMENT IN HR. HR NOW A.FIB 110-130s. PATIENT APPEARS TO BE SLEEPING CURRENTLY.
[2022-02-21 04:52] LABS: BASOPHILS ABSOLUTE AUTO 0.01 K/mm3 (0.00-0.23); BASOPHILS PERCENT AUTO 0 % (0-2); EOSINOPHILS PERCENT AUTO 0 % (0-6); Hematocrit 46.8 % (37.0-53.0); Hemoglobin 15.2 g/dL (13.5-17.5); IMMATURE GRAN ABSOLUTE AUTO 0.03 K/mm3 (0.00-0.10); IMMATURE GRAN PERCENT AUTO 0 % (0-1); LYMPHOCYTES ABSOLUTE AUTO 0.41 K/mm3 (0.84-5.20); LYMPHOCYTES PERCENT AUTO 6 % (21-46); MONOCYTES ABSOLUTE AUTO 0.41 K/mm3 (0.16-1.47); MONOCYTES PERCENT AUTO 6 % (4-13); Mean Corpuscular HGB 29.4 pg (26.0-34.0); Mean Corpuscular HGB Conc 32.5 g/dL (31.5-36.5); Mean Corpuscular Volume 91 fL (80-100); Mean Platelet Volume 9.7 fL (9.1-12.4); NEUTROPHILS ABSOLUTE AUTO 6.65 K/mm3 (1.96-9.15); NEUTROPHILS PERCENT AUTO 89 % (41-73); Platelet Count 202 K/mm3 (150-400); RDW Coefficient Variation 13.1 % (11.7-14.2); RDW Standard Deviation 44.1 fL (35.1-46.3); Red Blood Cell Count 5.17 M/mm3 (4.30-5.90); White Blood Cell Count 7.51 K/mm3 (4.00-11.30)
[2022-02-21 05:13] LABS: Bun/Creatinine Ratio 50.4 (12.0-20.0); Calcium, Blood 8.7 mg/dL (8.5-10.1); Creatinine, Blood 0.58 mg/dL (0.60-1.20); Magnesium, Blood 1.7 mg/dL (1.6-2.4); Potassium, Blood 4.4 mmol/L (3.5-5.5)
--- NOTE | 2022-02-21 05:35 | NUR ---
SHIFT SUMMARY PATIENT ALERT AND ORIENTED ON PRECEDEX. 02 SATS 97% ON BIPAP 03/06 FI02 35%. LS COARSE T/O, NON-PRODUCTIVE COUGH. PATIENTS ANXIETY AND WOB IMPORVED WITH PRECEDEX INFUSING. HR SR 70s, CARDIZEM OFF AT APPROX 0230. BP STABLE. SUNG PATENT AND DRAINING TO GRAVITY, 550 OUT THIS SHIFT. CLINIMIX INFUSING. ASSISTANCE WITH REPOSITION, BEDBATH DONE AND LINEN CHANGED. CALL LIGHT IN REACH.
--- NOTE | 2022-02-21 08:00 | NUR ---
PT SPOUSE WILLIE UPDATED TO PT CURRENT STATUS AND DECLINE OVER NIGHT. DISCUSSED POSSIBLE NEED FOR INTUBATION AND MRS. OLIVER STATED "HE WOULD NOT WANT THAT." PT IS LIGHTLY SEDATED ON PRECEDEX @ 0.3 MCG/KG/MIN AT AM ASSESSMENT. PT AWAKENED WHEN HIS NAME WAS CALLED AND BECAME AGITATED. HE STATED THAT HIS BACK WAS HURTING AND ASKED IF IT WAS TIME FOR A "PAIN PILL." PT IS BIPAP DEPENDENT AT THIS TIME-REQUESTED IV PAIN MEDS FROM DR. MOSLEY. AWARE THAT PT IS NOW BIPAP DEPENDENT AND THAT THERE WAS A DECLINE IN HIS STATUS OVERNIGHT. LUNGS ARE EXTREMELY TIGHT, COARSE, AND WHEEZY THOUGHOUT. RR 40'S AND PT IS USING ACCESSORY MUSCLES TO BREATH. NPO HIGH RISK FOR ASPIRATION AND BIPAP DEPENDENT. DR. BRODERICK ALSO BY TO SEE PT AND DISCUSSED COMFORT CARE WITH PT SPOUSE AND FAMILY. PT ULTIMATELY MADE COMFORT CARE. THE PLAN IS TO MANAGE PT ANXIETY, AIR HUNGER, AND PAIN. PRECEDEX TITRATED UP TO 1.4 MCG/KG/MIN. ONCE PT PAIN AND ANXIETY ARE MANAGED, WILL ATTEMPT TO WEAN OFF OF BIPAP AND TRANSITION TO NASAL CANULA OR RA IF WOB/AIR HUNGER ALLOWS.
--- NOTE | 2022-02-21 10:00 | NUR ---
PT USING ACCESSORY MUSCLES TO BREATHE. RR 32. PT MED WITH ATIVAN 2 MG IVP AND DILAUDID 1 MG IVP. REPOSITONED TO SEMI PAULA'S POSITION. BIPAP REMOVED AND PT PLACED ON 2 LITERS NASAL CANULA. RESPIRATIONS AUDIBLY MOIST-MED WITH ATROPINE S.L. FAMILY AT BEDSIDE.
--- NOTE | 2022-02-21 11:30 | NUR ---
AIR HUNGER NOTED. RESPIRATIONS AUDIBLY MOIST. RR 40'S. PT USING ACCESSORY MUSCLE TO BREATHE. UDN GIVEN BY RT. LUNGS TIGHT AND COARSE WITH EXPIRATORY WHEEZES. MED WITH DILAUDID AND ATIVAN FOR AIR HUNGER/PAIN. ATROPINE DROPS GIVEN FOR SECRETIONS.
--- NOTE | 2022-02-21 13:30 | NUR ---
AIR HUNGER NOTED. RR 32-40. PT USING ACCESSORY MUSCLES TO BREATHE. PRECEDEX CONTINUES @ 1.4 MCG/KG/MIN. MED WITH DILAUDID AND ATIVAN FOR PAIN/AIR HUNGER. PT BOOSTED IN BED AND HIPS SHIFTED. FAMILY REMAINS AT BEDSIDE.
--- NOTE | 2022-02-22 06:20 | NUR ---
Shift Summary: Pt on comfort care. Precedex drip off and PRN ativan and dilaudid given throughout the night for air hunger. stayed at bedside majority of the night but went home this morning around 6. Pt on RA per family request. HR between 110-120s, O2 sat in 60s. Echeverria still intact and draining.
--- NOTE | 2022-02-22 07:15 | NUR ---
ASSUMED CARE OF PT AT 0715 BEDSIDE REPORT RECIEVED FROM OFFGOING RN, PT IS RESTING IN BED. IS NON-RESPONSIVE, BEING MEDICATED FOR NON-VERBAL INDICATORS OF DISCOMFORT EVERY 2-4 HOURS. NO FAMILY AT BEDSIDE. PT IS MEDICAL STATUS AND ON COMFORT CARE. RN TO CONTINUE TO MONITOR.
--- NOTE | 2022-02-22 12:20 | NUR ---
TIME OF 1142 DR. YOUNG NOTIFED. PT'S SON AT BEDSIDE. NOTIFIED VIA PHONE, SHE DECLINES TO COME TO HOSPITAL AT THIS TIME. SON CONFIRMS NO ADDITIONAL FAMILY EXPECTED TO SEE PT. FINAL DISCHARGE CALLED, DEYSI'S HOME NOTIFIED.
== END 2022-02-22 11:42 | DRG 193 ==
LOC: ER 07:42 → ICUW 09:17 → PCU 09:17 → ICUW 09:17 → PCU 11:05 → ICUW 18:01
PROVIDERS: Emergency Medicine; Internal Medicine; Internal Medicine Critical Care Medicine; ADMIT Internal Medicine
PROC: 5A09457 Assistance with Respiratory Ventilation, 24-96 Consecutive Hours, Continuous Positive Airway Pressure (ICD-10-PCS; principal; 2022-02-19)
DX: J12.1 Respiratory syncytial virus pneumonia (principal); J96.21 Acute and chronic respiratory failure with hypoxia; J96.22 Acute and chronic respiratory failure with hypercapnia; J44.1 Chronic obstructive pulmonary disease with (acute) exacerbation; F11.20 Opioid dependence, uncomplicated; J44.0 Chronic obstructive pulmonary disease with (acute) lower respiratory infection; Z66 Do not resuscitate; I10 Essential (primary) hypertension; I48.0 Paroxysmal atrial fibrillation; Z51.5 Encounter for palliative care; F17.210 Nicotine dependence, cigarettes, uncomplicated; C45.9 Mesothelioma, unspecified; Z20.822 Contact with and (suspected) exposure to COVID-19; G89.4 Chronic pain syndrome; F41.9 Anxiety disorder, unspecified; M48.00 Spinal stenosis, site unspecified; Z88.5 Allergy status to narcotic agent; Z79.82 Long term (current) use of aspirin; Z79.2 Long term (current) use of antibiotics; Z79.899 Other long term (current) drug therapy; Z79.01 Long term (current) use of anticoagulants; Z79.51 Long term (current) use of inhaled steroids; Z79.52 Long term (current) use of systemic steroids; Z98.890 Other specified postprocedural states
CPT/HCPCS: 0241U; 36415; 36600; 71045; 80048; 80053; 81001; 82803; 83735; 83880; 84100; 84145; 84484; 85025; 93005; 93010; 94640; 94644; 94660; 94664; 96365; 99285-25; A9270; C1751; J0456; J1170; J1650; J1940; J2060; J2930; J3010; J7030; J7050; J7060